=== PATIENT | male | born 1970 | race Caucasian/White ===

== ENCOUNTER 2023-10-20 04:00 | Emergency (ER) | payer SELFPAY ==
[2023-10-20 04:06] VITALS: BP 131/84
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
[2023-10-20] MEDS: SILVADENE 1 APPLIC TOPICAL (04:41)
[2023-10-20] MEDS: MOTRIN 600 MG PO (04:41)
== END 2023-10-20 05:03 | disposition home or self-care (01) ==
LOC: EMR 04:00
PROVIDERS: EMERGENCY PHYSICIAN Emergency Medicine
DX: Z48.00 Encounter for change or removal of nonsurgical wound dressing (principal); M79.89 Other specified soft tissue disorders; M79.641 Pain in right hand; G89.4 Chronic pain syndrome; F31.9 Bipolar disorder, unspecified; F11.20 Opioid dependence, uncomplicated; Z91.040 Latex allergy status
CPT/HCPCS: 99283

== ENCOUNTER 2023-10-26 03:42 | Emergency (ER) | payer SELFPAY ==
[2023-10-26 03:51] VITALS: BP 133/94
[2023-10-26 07:45] VITALS: BP 142/79
--- NOTE | 2023-10-26 08:27 | PHANOTE ---
med rec note- patent claim he lost all his medication which were picked up on 10/19/23 oxycodone ir 15mg two tid prn #50, Valium 10mg bid prn 10/23/23 #45, 10/17/23#60 phenobarbital 15mg bid, [id number] tid #21 10/17/23, Ambien er 12.5 hs #30
10/17/23. carbamazepine er 200 bid #30 11/13/23, cephalexin 500mg q6h 10/10/23 #28, zofran odt 4mg prn 10/17/23 #60.
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
[2023-10-26 09:49] VITALS: BP 123/93
== END 2023-10-26 09:50 | disposition home or self-care (01) ==
LOC: EMR 03:42
PROVIDERS: EMERGENCY PHYSICIAN Emergency Medicine
DX: Z76.0 Encounter for issue of repeat prescription (principal); F31.9 Bipolar disorder, unspecified; G89.29 Other chronic pain
CPT/HCPCS: 99282